=== PATIENT | female | born 1995 | race African-American/Black ===

== ENCOUNTER 2016-12-04 04:36 | Emergency (ER) | payer OTHER ==
[~2016-12-04] VITALS: Ht 165.1 cm; Wt 91.0 kg
[2016-12-04 04:41] VITALS: BP 122/48
== END 2016-12-04 07:00 | disposition left against medical advice (07) ==
LOC: ER 07:00
DX: Z53.21 Procedure and treatment not carried out due to patient leaving prior to being seen by health care provider (principal)

== ENCOUNTER 2016-12-05 09:08 | Emergency (ER) | payer OTHER ==
[~2016-12-05] VITALS: Ht 165.1 cm; Wt 91.0 kg
[2016-12-05] MEDS ORDERED: KETOROLAC 30MG/ML VIAL IV ONE (10:30)
[2016-12-05] MEDS ORDERED: ONDANSETRON HCL 4MG/2ML VIAL IV ONE (10:30)
[2016-12-05] MEDS ORDERED: FAMOTIDINE 20MG/2ML VIAL IV ONE (10:30)
[2016-12-05 11:02] LABS: BASOPHILS % 0.5 % (0.0-2.0); EOSINOPHILS % 8.4 % (0.0-5.0); HEMATOCRIT. 36.4 % (36.0-48.0); HEMOGLOBIN. 12.1 g/dL (12.0-16.0); LYMPHOCYTES % 19.3 % (20.0-50.0); MEAN CORPUSCULAR HEMOGLOBIN 27.4 pg (28.0-32.0); MEAN CORPUSCULAR VOLUME 82.5 fL (81.0-99.0); MONOCYTES % 6.3 % (2.0-8.0); NEUTROPHILS % 65.5 % (40.0-76.0); PLATELET 279 x1000/uL (130-400); RED BLOOD CELL COUNT 4.41 mill/uL (4.2-5.4); RED CELL DISTRIBUTION WIDTH 15.7 % (11.6-14.6)
[2016-12-05 11:13] LABS: CARBON DIOXIDE 28 mEq/L (21-32); CHLORIDE 106 mEq/L (98-107)
[2016-12-05 11:26] LABS: CLARITY URINE CLOUDY (CLEAR); KETONES URINE TRACE (NEGATIVE); LEUKOCYTE ESTERASE URINE TRACE (NEGATIVE); NITRITE URINE NEGATIVE (NEGATIVE); OCCULT BLOOD URINE 3+ (NEGATIVE); PH URINE 6.5 (4.5-8.0); PROTEIN URINE 1+ (NEGATIVE); SPECIFIC GRAVITY URINE 1.023 (1.005-1.030)
[2016-12-05 11:54] LABS: COLOR URINE BLOODY (YELLOW)
[2016-12-05 12:35] VITALS: BP 122/69
== END 2016-12-05 13:25 | disposition home or self-care (01) ==
LOC: ER 10:17
DX: N39.0 Urinary tract infection, site not specified (principal); J06.9 Acute upper respiratory infection, unspecified; N94.6 Dysmenorrhea, unspecified; R20.2 Paresthesia of skin
CPT/HCPCS: 36415; 71020; 76705; 76856; 80053; 81001; 81025; 83690; 85025; 96374; 96375; 99285; J1885; J2405; J3490; Z7610

== ENCOUNTER 2016-12-19 08:57 | Emergency (ER) | payer OTHER ==
[~2016-12-19] VITALS: Ht 165.1 cm; Wt 91.0 kg
[2016-12-19 12:29] VITALS: BP 120/73
== END 2016-12-19 12:30 | disposition home or self-care (01) ==
LOC: ER 08:59
DX: R20.2 Paresthesia of skin (principal); R53.1 Weakness; R21 Rash and other nonspecific skin eruption
CPT/HCPCS: 70551; 81025; 99284

== ENCOUNTER 2021-12-02 23:57 | Emergency (ER) | payer OTHER ==
[~2021-12-02] VITALS: Ht 167.6 cm; Wt 105.0 kg
[2021-12-03] MEDS ORDERED: KETOROLAC 60MG/2ML VIAL IM ONE (06:30)
[2021-12-03] MEDS ORDERED: ACETAMINOPHEN 325MG TABLET PO ONE ×2 (06:30→09:00)
[2021-12-03] MEDS ORDERED: MORPHINE SULFATE 10 MG/ML CPJ IM ONE (06:30)
[2021-12-03 06:55] VITALS: BP 123/73
[2021-12-03 07:07] LABS: CLARITY URINE CLEAR (CLEAR); COLOR URINE YELLOW (YELLOW); KETONES URINE TRACE (NEGATIVE); LEUKOCYTE ESTERASE URINE NEGATIVE (NEGATIVE); NITRITE URINE NEGATIVE (NEGATIVE); OCCULT BLOOD URINE 2+ (NEGATIVE); PH URINE 5.5 (4.5-8.0); PROTEIN URINE TRACE (NEGATIVE); SPECIFIC GRAVITY URINE 1.024 (1.005-1.030)
[2021-12-03] MEDS ORDERED: IBUP-2028 MT (08:31)
[2021-12-03] MEDS ORDERED: TOPUD PO (08:31)
== END 2021-12-03 09:00 | disposition home or self-care (01) ==
LOC: ER 23:57
DX: N94.6 Dysmenorrhea, unspecified (principal); Z98.890 Other specified postprocedural states
CPT/HCPCS: 76830; 76856; 81003; 81025; 96372; 99284; J1885; J2270

== ENCOUNTER 2021-12-17 20:51 | Emergency (ER) | payer OTHER ==
[~2021-12-17] VITALS: Ht 165.1 cm; Wt 99.8 kg
[~2021-12-17 20:51] MED LIST: IBUP-2028 MT; TOPUD PO
[2021-12-18] MEDS ORDERED: KETOROLAC 60MG/2ML VIAL IM STA (10:19)
[2021-12-18 11:56] LABS: CHLORIDE 107 mEq/L (98-107)
[2021-12-18 12:02] LABS: BASOPHILS % 0.5 % (0.0-2.0); EOSINOPHILS % 2.1 % (0.0-5.0); HEMATOCRIT. 37.7 % (36.0-48.0); LYMPHOCYTES % 28.1 % (20.0-50.0); MEAN CORPUSCULAR HEMOGLOBIN 26.1 pg (28.0-32.0); MEAN CORPUSCULAR VOLUME 82.1 fL (81.0-99.0); MEAN PLATELET VOLUME 9.2 fl (7.4-10.4); MONOCYTES % 5.2 % (2.0-8.0); NEUTROPHILS % 64.1 % (40.0-76.0); PLATELET 338 x1000/uL (130-400); RED BLOOD CELL COUNT 4.59 mill/uL (4.2-5.4); RED CELL DISTRIBUTION WIDTH 16.8 % (11.6-14.6)
[2021-12-18] MEDS ORDERED: IBUP-2029 MT (13:32)
[2021-12-18 14:25] VITALS: BP 123/79
[2021-12-21 07:11] LABS: NEISSERIA GONORRHOEAE NAA Negative (Negative)
== END 2021-12-18 14:45 | disposition home or self-care (01) ==
LOC: ER 20:51
DX: R10.32 Left lower quadrant pain (principal); Z86.73 Personal history of transient ischemic attack (TIA), and cerebral infarction without residual deficits; Z98.890 Other specified postprocedural states
CPT/HCPCS: 36415; 76830; 76856; 80053; 83690; 85025; 87210; 87491; 87591; 96372; 99284; J1885

== ENCOUNTER 2021-12-19 20:45 | Emergency (ER) | payer MEDICAID, OTHER ==
[~2021-12-19] VITALS: Ht 165.1 cm; Wt 99.0 kg
[~2021-12-19 20:45] MED LIST changes: +IBUP-2029 MT
[2021-12-20] MEDS ORDERED: HYDR-4001 MT (03:45)
[2021-12-20 04:07] VITALS: BP 122/78
== END 2021-12-20 04:07 | disposition home or self-care (01) ==
LOC: ER 20:45
DX: R10.9 Unspecified abdominal pain (principal); Z98.890 Other specified postprocedural states
CPT/HCPCS: 74176; 81025; 99284

== ENCOUNTER 2022-01-09 20:40 | Emergency (ER) | payer MEDICAID ==
[~2022-01-09 20:40] MED LIST changes: +HYDR-4001 MT
== END 2022-01-09 22:05 | disposition left against medical advice (07) ==
LOC: ER 20:40
DX: Z53.21 Procedure and treatment not carried out due to patient leaving prior to being seen by health care provider (principal)

== ENCOUNTER 2022-01-14 17:12 | Emergency (ER) | payer MEDICAID ==
[~2022-01-14] VITALS: Ht 167.6 cm; Wt 98.0 kg
[2022-01-14 20:26] LABS: BASOPHILS % 0.5 % (0.0-2.0); EOSINOPHILS % 3.4 % (0.0-5.0); HEMATOCRIT. 36.8 % (36.0-48.0); LYMPHOCYTES % 34.3 % (20.0-50.0); MEAN CORPUSCULAR HEMOGLOBIN 26.6 pg (28.0-32.0); MEAN CORPUSCULAR VOLUME 81.8 fL (81.0-99.0); MEAN PLATELET VOLUME 9.3 fl (7.4-10.4); MONOCYTES % 6.7 % (2.0-8.0); NEUTROPHILS % 55.1 % (40.0-76.0); PLATELET 332 x1000/uL (130-400); RED CELL DISTRIBUTION WIDTH 16.1 % (11.6-14.6)
[2022-01-14 20:37] LABS: CHLORIDE 106 mEq/L (98-107)
[2022-01-14 20:44] LABS: ETHANOL BLOOD < 10 mg/dL
[2022-01-14 20:54] LABS: HCG SCREEN POSITIVE
[2022-01-14] MEDS: ACETAMINOPHEN 325MG TABLET PO NR (23:15)
[2022-01-15] MEDS: ACETAMINOPHEN 325MG TABLET PO NR (00:30)
[2022-01-15 00:44] LABS: CLARITY URINE CLOUDY (CLEAR); COLOR URINE YELLOW (YELLOW); KETONES URINE 4+ (NEGATIVE); LEUKOCYTE ESTERASE URINE TRACE (NEGATIVE); NITRITE URINE NEGATIVE (NEGATIVE); OCCULT BLOOD URINE NEGATIVE (NEGATIVE); PH URINE 5.5 (4.5-8.0); PROTEIN URINE TRACE (NEGATIVE)
[2022-01-15] MEDS ORDERED: CEPH500T MT (00:56)
[2022-01-15 01:04] LABS: *AMPHETAMINES SCREEN URINE NEGATIVE (NEGATIVE); *BARBITURATES SCREEN URINE NEGATIVE (NEGATIVE); *BENZODIAZEPINES SCREEN URINE NEGATIVE (NEGATIVE); *COCAINE SCREEN URINE NEGATIVE (NEGATIVE); METHADONE URINE SCREEN NEGATIVE (NEGATIVE); OPIATES URINE SCREEN NEGATIVE (NEGATIVE); PHENCYCLIDINE URINE SCREEN NEGATIVE (NEGATIVE)
[2022-01-15 01:08] LABS: CANNABINOID URINE SCREEN PRESUMTIVE POSITIVE (NEGATIVE)
[2022-01-15 01:15] VITALS: BP 127/77
== END 2022-01-15 01:17 | disposition home or self-care (01) ==
LOC: ER 17:12
DX: O23.31 Infections of other parts of urinary tract in pregnancy, first trimester (principal); Z3A.01 Less than 8 weeks gestation of pregnancy; Z86.73 Personal history of transient ischemic attack (TIA), and cerebral infarction without residual deficits; Z98.890 Other specified postprocedural states; Z79.899 Other long term (current) drug therapy
CPT/HCPCS: 36415; 76801; 80053; 80305; 80320; 81003; 81025; 84702; 84703; 85025; 99284; G0480

== ENCOUNTER 2022-02-01 14:41 | Emergency (ER) | payer MEDICAID ==
[~2022-02-01] VITALS: Ht 165.1 cm; Wt 100.0 kg
[~2022-02-01 14:41] MED LIST changes: +CEPH500T MT
[2022-02-01 14:58] VITALS: BP 138/78
== END 2022-02-03 19:51 | disposition left against medical advice (07) ==
LOC: ER 14:41
DX: O26.891 Other specified pregnancy related conditions, first trimester (principal); R10.2 Pelvic and perineal pain; Z3A.08 8 weeks gestation of pregnancy
CPT/HCPCS: 76815; 99284

== ENCOUNTER 2022-02-17 11:39 | Emergency (ER) | payer MEDICAID ==
[~2022-02-17] VITALS: Ht 167.6 cm; Wt 100.0 kg
[2022-02-17 11:42] VITALS: BP 139/81
[2022-02-17] MEDS ORDERED: ACETAMINOPHEN 325MG TABLET PO PRN (12:00)
[2022-02-17] MEDS ORDERED: METOCLOPRAMIDE HCL 5MG TABLET PO ONE (12:15)
[2022-02-17 13:37] LABS: CLARITY URINE CLOUDY (CLEAR); COLOR URINE YELLOW (YELLOW); KETONES URINE NEGATIVE (NEGATIVE); LEUKOCYTE ESTERASE URINE 2+ (NEGATIVE); NITRITE URINE NEGATIVE (NEGATIVE); OCCULT BLOOD URINE NEGATIVE (NEGATIVE); PH URINE 5.5 (4.5-8.0); PROTEIN URINE NEGATIVE (NEGATIVE); UROBILINOGEN URINE 0.2 E.U./dL (0.2-1.0)
[2022-02-17 13:51] LABS: CHLORIDE 106 mEq/L (98-107)
[2022-02-17 14:13] LABS: B-HCG QUANTITATIVE 55638 mIU/mL (<3)
[2022-02-17] MEDS ORDERED: PREN-118 MT (15:06)
[2022-02-17] MEDS ORDERED: CEPH250C2 MT (15:06)
[2022-02-17] MEDS ORDERED: METO5TAB86 MT (15:06)
== END 2022-02-17 15:27 | disposition home or self-care (01) ==
LOC: ER 11:52
DX: O23.31 Infections of other parts of urinary tract in pregnancy, first trimester (principal); Z3A.11 11 weeks gestation of pregnancy
CPT/HCPCS: 36415; 76801; 80053; 81003; 81025; 84702; 86850; 86900; 86901; 99284; J8597